=== PATIENT | male | born 1970 | race Caucasian/White ===

== ENCOUNTER 2018-06-21 11:07 | Day surgery (SDC) | payer BC ==
[2018-06-19 13:42] VITALS: BMI 28.5
[~2018-06-21 11:07] MED LIST: LACTATED RINGERS 1,000 ML IV SCH
[2018-06-21] MEDS ORDERED: LIDOCAINE 1% 20 ML VIAL (10MG/ML) FOR IV START INTRADERMA ONE (11:54)
[2018-06-21 12:08] VITALS: TEMP 98.2
[2018-06-21] MEDS ORDERED: PROPOFOL 10 MG/ML 20 ML VIAL IV ONE (12:29)
--- NOTE | 2018-06-21 12:45 | P.PCN ---
Date of Procedure: 06/21/18 Procedure(s) Performed: BRIEF HISTORY: Patient is a 48-year-old pleasant white male scheduled for an elective colonoscopy as a part of screening for colorectal neoplasia. PROCEDURE PERFORMED: Colonoscopy. PREOPERATIVE DIAGNOSIS: Screening For colon cancer. IV sedation per Anesthesia. PROCEDURE: After informed consent was obtained, the patient, was brought into the endoscopy unit. IV sedation was administered by Anesthesia under continuous monitoring. Digital rectal examination was normal. Initially the Olympus CF-160 flexible video colonoscope was then inserted in the rectum, gradually advanced into the cecum without any difficulty. Careful examination was performed as the scope was gradually being withdrawn. Ileocecal valve and the appendiceal orifice were visualized and appeared normal. Prep was excellent. Mucosa of the cecum, ascending colon, transverse colon, descending colon, sigmoid colon, and rectum appeared normal. Retroflexion was performed in the rectum and no lesions were seen. The patient tolerated the procedure well. IMPRESSION: Normal-appearing colon from rectum to cecum with no evidence of colorectal neoplasia . RECOMMENDATIONS: Findings of this examination were discussed with the patient as well as family. He was advised to have a repeat screening colonoscopy in 10 years.
[2018-06-21 12:50] VITALS: RESP 16
[2018-06-21 13:03] VITALS: BP 135/92; PULSE 69
== END 2018-06-21 13:53 | disposition home or self-care (01) ==
LOC: ORWHC2ENDO 11:07
PROVIDERS: ATTEND Internal Medicine Gastroenterology
DX: Z12.11 Encounter for screening for malignant neoplasm of colon (principal); Z88.5 Allergy status to narcotic agent
CPT/HCPCS: J2704; G0121

== ENCOUNTER 2021-02-21 06:33 | Emergency (ER) | payer BC ==
--- NOTE | 2021-02-21 07:10 | XR ---
EXAMINATION TYPE: XR chest 1V portable DATE OF EXAM: 02/21/2021 COMPARISON: None HISTORY: Cough TECHNIQUE: Single frontal view of the chest is obtained. FINDINGS: Subtle infiltrate in the right lower lung zone could represent pneumonia. The left lung is clear. The heart size is normal and the vasculature is not congested. The osseous structures are int act. IMPRESSION: Subtle infiltrate in the right lung base. Consistent with acute cardiopulmonary disease. Short-term follow-up to resolution is recommended.
[2021-02-21] MEDS ORDERED: ACETAMINOPHEN TAB 500 MG TAB PO STA (09:49)
--- NOTE | 2021-02-21 09:54 | ED ---
URI HPI - General Chief Complaint: Upper Respiratory Infection Stated Complaint: Fever, Covid+ Time Seen by Provider: 02/21/21 06:44 Source: patient, RN notes reviewed Mode of arrival: ambulatory Limitations: no limitations - History of Present Illness Initial Comments: 50-year-old male presents emergency Department chief complaint of COVID-19. Patient states that he tested positive on Tuesday states symptoms started 1 week ago. Patient complains of mild symptoms including fever chills cough congestion body aches. No shortness breath chest pain. Patient had no GI symptoms. Patient offers no complains. - Related Data Home Medications Medication Instructions Recorded Confirmed L.acidoph,Paracasei, B.lactis 1 each PO DAILY 06/19/18 06/21/18 [Probiotic] Allergies Allergy/AdvReac Type Severity Reaction Status Date / Time morphine Allergy Rash/Hives Verified 02/21/21 06:38 Review of Systems ROS Statement: Those systems with pertinent positive or pertinent negative responses have been documented in the HPI. ROS Other: All systems not noted in ROS Statement are negative. Past Medical History Additional Past Medical History / Comment(s): hx ulcers, History of Any Multi-Drug Resistant Organisms: None Reported Past Surgical History: Orthopedic Surgery Additional Past Surgical History / Comment(s): vagotomy, martin knee arthroscopy Past Anesthesia/Blood Transfusion Reactions: No Reported Reaction Past Psychological History: No Psychological Hx Reported Smoking Status: Never smoker Past Alcohol Use History: Occasional Past Drug Use History: None Reported - Past Family History Father Family Medical History: Cancer Additional Family Medical History / Comment(s): prostate cancer General Exam Limitations: no limitations Course Vital Signs 02/21/21 06:33 Temperature 99.7 F H Pulse Rate 87 Respiratory 22 Rate Blood Pressure 125/86 O2 Sat by Pulse 96 Oximetry Medical Decision Making - Lab Data Lab Results 02/21/21 Range/Units 06:38 Coronavirus (PCR) Detected A (Not Detectd) Disposition Clinical Impression: COVID-19 Disposition: HOME SELF-CARE Condition: Stable Instructions (If sedation given, give patient instructions): Coronavirus Di sease 2019 (COVID-19) Additional Instructions: Please return to the Emergency Department if symptoms worsen or any other concerns. Is patient prescribed a controlled substance at d/c from ED?: No Referrals: Roly Hinkle MD [Primary Care Provider] - 1-2 days Time of Disposition: 09:53
[2021-02-21] MEDS ORDERED: SOTROVIMAB (EUA) 500 MG in SODIUM CHLORIDE 0.9% 100 ML IVPB ONE (10:00)
[2021-02-21] MEDS ORDERED: SODIUM CHLORIDE 0.9% 50 ML IVPB ONE (10:00)
[2021-02-21 12:08] VITALS: BP 119/84; PULSE 81; RESP 16; TEMP 98
== END 2021-02-21 12:23 | disposition home or self-care (01) ==
LOC: EC 06:33
DX: U07.1 COVID-19 (principal)
CPT/HCPCS: 87635; 71045; 99284; Q0247